=== PATIENT | male | born 1970 | race Caucasian/White ===

== ENCOUNTER → 2022-01-16 | Outpatient (CLI) | payer OTHER ==
--- NOTE | 2022-01-16 19:17 | Diagnostic Imaging Report ---
INDICATION: Chronic lower back pain. COMPARISON: None available. TECHNIQUE: Three radiographs of the lumbar spine dated January 16, 2022. FINDINGS: Five lumbar-type vertebral bodies are present. Alignment of the lumbar spine is well maintained. Mild chronic-appearing anterior wedge deformity of L1 is identified. Additionally, mild scattered endplate degenerative changes are present, greatest at L4/L5. Moderate disc space height loss at L4/L5 with mild disc space height loss at L5/S1. No severe disc space height loss. Mild multilevel anterior osteophytes. Scattered facet joint degenerative changes, greatest within the lower lumbar spine. No acute fracture. The sacroiliac joints are intact. Mild background vascular calcifications. IMPRESSION: No acute osseous abnormality with [id number] scattered degenerative changes, greatest at L4/L5 and L5/S1 levels. Dictated by: Dictated on workstation # [id number]
== END ==
LOC: RAD FS 12:13
PROVIDERS: ATTEND Pediatrics
DX: M47.816 Spondylosis without myelopathy or radiculopathy, lumbar region (principal); M47.817 Spondylosis without myelopathy or radiculopathy, lumbosacral region
CPT/HCPCS: 72100